=== PATIENT | female | born 1965 | race Caucasian/White ===

== ENCOUNTER → 2019-04-18 16:40 | Outpatient (BNVA) | payer BC, SELFPAY | PROVIDERS: Family Provider Nurse Practitioner; PCP Nurse Practitioner; Visit Provider Nurse Practitioner Family | DX: J34.89 Other specified disorders of nose and nasal sinuses (principal); E78.2 Mixed hyperlipidemia; L98.9 Disorder of the skin and subcutaneous tissue, unspecified | CPT/HCPCS: 80053; 80061; 85025 ==

== ENCOUNTER → 2019-06-10 08:15 | Outpatient (BNVA) | payer BC, SELFPAY | PROVIDERS: Family Provider Nurse Practitioner; PCP Nurse Practitioner; Visit Provider Nurse Practitioner | DX: F33.0 Major depressive disorder, recurrent, mild (principal); F10.20 Alcohol dependence, uncomplicated; Z63.4 Disappearance and death of family member | CPT/HCPCS: 99213 ==

== ENCOUNTER → 2019-08-13 09:58 | Outpatient (BNVA) | payer BC, SELFPAY | PROVIDERS: Family Provider Nurse Practitioner; PCP Nurse Practitioner; Visit Provider Nurse Practitioner | DX: I10 Essential (primary) hypertension (principal); E78.2 Mixed hyperlipidemia; Z68.26 Body mass index [BMI] 26.0-26.9, adult | CPT/HCPCS: 80053; 80061; 82607; 84443 ==

== ENCOUNTER → 2019-09-02 11:56 | Outpatient (BNVA) | payer BC, SELFPAY | PROVIDERS: Family Provider Nurse Practitioner; PCP Nurse Practitioner; Visit Provider Nurse Practitioner | DX: L91.8 Other hypertrophic disorders of the skin (principal) | CPT/HCPCS: 88305 ==

== ENCOUNTER 2019-09-30 08:16 | Outpatient (CLI) | payer BC, SELFPAY ==
--- NOTE | 2019-09-30 08:23 | MM_ITS ---
WS: [id number] BILATERAL DIGITAL SCREENING MAMMOGRAPHY WITH CAD CLINICAL INFORMATION: SCREENING HISTORY: Screening mammogram. No current complaints. COMPARISON: TECHNIQUE: Bilateral CC and MLO views. FINDINGS: Scattered fibroglandular densities bilaterally. No suspicious focal mass, asymmetry, calcifications, or architectural distortion. No evidence of malignancy. A few punctate calcifications. Stable right r etroareolar density. MM/[place] [id number] IMPRESSION: BI-RADS: 2-Benign FOLLOW UP: 1 Year Follow-up Recommend return to annual screening mammography.
== END 2019-09-30 08:17 | disposition home or self-care (01) ==
LOC: RADSHAW 08:21
PROVIDERS: PCP Nurse Practitioner; Visit Provider Nurse Practitioner
DX: Z12.31 Encounter for screening mammogram for malignant neoplasm of breast (principal)
CPT/HCPCS: 77067

== ENCOUNTER → 2019-12-20 08:28 | Outpatient (BNVA) | payer BC, SELFPAY | PROVIDERS: PCP Nurse Practitioner; Visit Provider Nurse Practitioner Family | DX: Z11.59 Encounter for screening for other viral diseases (principal) | CPT/HCPCS: 87635 ==

== ENCOUNTER → 2019-12-27 07:33 | Outpatient (BNVA) | payer BC, SELFPAY | PROVIDERS: PCP Nurse Practitioner; Visit Provider Nurse Practitioner | DX: F33.0 Major depressive disorder, recurrent, mild (principal); F10.20 Alcohol dependence, uncomplicated | CPT/HCPCS: 99213 ==

== ENCOUNTER → 2020-01-03 13:15 | Outpatient (BNVA) | payer BC, SELFPAY | PROVIDERS: PCP Nurse Practitioner; Visit Provider Nurse Practitioner Family | DX: Z11.59 Encounter for screening for other viral diseases (principal); J06.9 Acute upper respiratory infection, unspecified | CPT/HCPCS: 87635 ==

== ENCOUNTER → 2020-02-20 11:48 | Outpatient (BNVA) | payer BC, SELFPAY | PROVIDERS: PCP Nurse Practitioner; Visit Provider Nurse Practitioner Family | DX: M17.12 Unilateral primary osteoarthritis, left knee (principal); M25.562 Pain in left knee | CPT/HCPCS: 73562 ==

== ENCOUNTER → 2020-03-02 16:57 | Outpatient (BNVA) | payer BC, SELFPAY | PROVIDERS: PCP Nurse Practitioner; Visit Provider Nurse Practitioner | DX: I10 Essential (primary) hypertension (principal); E78.2 Mixed hyperlipidemia; L98.9 Disorder of the skin and subcutaneous tissue, unspecified | CPT/HCPCS: 80053; 80061; 81000; 88305 ==

== ENCOUNTER → 2020-06-12 09:20 | Outpatient (BNVA) | payer BC, SELFPAY | PROVIDERS: PCP Nurse Practitioner; Visit Provider Nurse Practitioner | DX: F33.0 Major depressive disorder, recurrent, mild (principal); F10.20 Alcohol dependence, uncomplicated | CPT/HCPCS: 99214 ==

== ENCOUNTER → 2020-06-24 15:54 | Outpatient (BNVA) | payer BC, SELFPAY | PROVIDERS: PCP Nurse Practitioner; Visit Provider Nurse Practitioner Family | DX: R10.31 Right lower quadrant pain (principal); M16.11 Unilateral primary osteoarthritis, right hip | CPT/HCPCS: 73502; 80053; 85025 ==

== ENCOUNTER 2020-10-28 10:16 | Outpatient (CLI) | payer BC, SELFPAY ==
--- NOTE | 2020-10-28 10:21 | MM_ITS ---
WS: [id number] BILATERAL DIGITAL SCREENING MAMMOGRAPHY WITH CAD CLINICAL INFORMATION: SCREENING HISTORY: Screening mammogram. No current complaints. COMPARISON: September 30, 2019 TECHNIQUE: Bilateral CC and MLO views. FINDINGS: Scattered fibroglandular densities bilaterally. No suspicious focal mass, asymmetry, calcifications, or architectural distortion. No evidence of malignancy. MM/[place] [id number] IMPRESSION: BI-RADS: 1-Negative FOLLOW UP: 1 Year Follow-up Recommend return to annual screening mammography.
== END 2020-10-28 10:17 | disposition home or self-care (01) ==
LOC: RADSHAW 10:20
PROVIDERS: PCP Nurse Practitioner; Visit Provider Nurse Practitioner
DX: Z12.31 Encounter for screening mammogram for malignant neoplasm of breast (principal)
CPT/HCPCS: 77067

== ENCOUNTER → 2021-07-08 16:24 | Outpatient (BNVA) | payer BC, SELFPAY | PROVIDERS: PCP Nurse Practitioner; Visit Provider Nurse Practitioner | DX: I10 Essential (primary) hypertension (principal); E78.2 Mixed hyperlipidemia; R00.0 Tachycardia, unspecified | CPT/HCPCS: 80053; 80061; 84443; 85025 ==

== ENCOUNTER 2021-09-24 07:54 | Emergency (ER) | payer BC, SELFPAY ==
[2021-09-24 08:19] VITALS: BP 150/89; PULSE 84; RESP 16; TEMP 36.8; O2SAT 93; BMI 26.9
[2021-09-24 08:24] VITALS: BP 115/80; O2SAT 94
--- NOTE | 2021-09-24 09:10 | XR_ITS ---
WS: [id number] Left elbow, 3 views, 09/24/2021 Clinical Data: injury with pain Comparison: None. Findings: There is an olecranon fracture with separation of the fracture fragments. Soft tissue swelling over t he posterior elbow is seen. There is minimal irregularity of the left radial head and the patient may have had an old fracture. The distal humerus is intact. XR/XR elbow LT min 3V* [id number] Impression: Fracture of the left olecranon with separation of the fracture fragments.
--- NOTE | 2021-09-24 09:28 | ED_ITS ---
HPI - Extremity Problem General: Chief complaint: Extremity Injury, Upper Stated complaint: injury to left arm, fall Time Seen by Provider: 09/24/21 08:19 History of Present Illness: 55-year-old female presents emergency department chief complaint of left elbow pain. The patient reports that she had fallen yesterday evening in which she has a history amount of swelling and discomfort noted to the left elbow with pain shooting down to her left arm. Patient reports no prior history of any trauma or injury noted to this previously she reports difficulty with bending the left elbow patient reports she sustained no other associated injuries. Associated symptoms: Deny chest pain, fever(s) or rash Review of Systems General: Reports: 10 or more systems reviewed and unremarkable except in HPI and below Const: Denies: fever(s), chills, fatigue or malaise Eyes: Denies: change in vision or blurry vision Card: Denies: chest pain or palpitations Resp: Denies: dyspnea or productive cough GI: Denies: abdominal pain, nausea or vomiting : Denies: flank pain Musc: Reports: joint pain, joint swelling, joint stiffness and limited range of motion Skin/Breast: Denies: rash or pruritus Neuro: Denies: headache(s) Psych: Denies: anxiety or depression Diogo/Lymph: Denies: easy bleeding All/Imm: Denies: urticaria, throat swelling or facial swelling [facility] ED PFSH: Medical History Alcohol dependence, uncomplicated Bereavement BMI 27.0-27.9,adult Essential (primary) hypertension Major depressive disorder, recurrent, mild Mixed hyperlipidemia Psychiatric care Surgical History History of endometrial ablation History of tubal ligation Family History Other Cancer Social History Smoking and tobacco status: current every day smoker cigarettes Packs smoked per day: 0.5 Second hand smoke exposure: Yes Smoking risk assessment/counseling performed?: Yes Alcohol intake: never Desire information about alcohol rehabilitation?: No Counseling given: No Desire information about substance/drug rehabilitation?: No Counseling given: No Adopted: No Caregiver/support person: No Lives independently: Yes Household members: spouse Housing: House Marital status: Number of children: 2 service: No Current occupational status: employed Current occupation: [employer] History of recent travel: No Current gender identity: Female Physical Exam Const: COMMON NORMALS: no acute distress, patient oriented x3 and healthy appearing HENMT: COMMON NORMALS: normocephalic and atraumatic HEAD & SCALP: normocephalic and atraumatic Eye: COMMON NORMALS: Equal, round and reactive pupils present and EOMs intact bilaterally PUPIL: Yes Equal, round and reactive pupils present Neck/C-Spine: COMMON NORMALS: full ROM, supple and no JVD Lymph: LYMPHATIC: no lymphadenopathy noted Chest: COMMONS NORMALS: normal inspection of the chest and normal palpation of entire chest wall Resp: COMMON NORMALS: normal respiratory effort, No retractions and clear to auscultation bilaterally EFFORT & INSPECTION: Yes able to speak in complete sentences and Yes symmetric chest movement AUSCULTATION: clear to auscultation bilaterally Cardio: COMMON NORMALS: no JVD, regular rate and regular rhythm RATE: regular rate RHYTHM: regular rhythm GI: COMMON NORMALS: Normal to inspection, nondistended, normoactive bowel sounds present, Soft to palpation and non-tender INSPECTION: Yes normal to inspection PALPATION: Yes Soft to palpation : COMMON NORMALS: Yes no CVA tenderness BLADDER/KIDNEY EXAM: Yes no CVA tenderness Back/Pelvis: COMMON NORMALS: no CVA tenderness Extremity: COMMON NORMALS: negative for normal to inspection and negative for full ROM NARRATIVE EXTREMITY EXAM: Moderate pain to palpation over the left elbow reduced range of motion of flexion extension due to pain mild crepitus appreciated in the joint neurovascularly intact distally underlying concerns underlying bony injury appreciated. Neuro: COMMON NORMALS: patient oriented x3, CN's II-XII intact bilaterally, moves all extremities and no focal motor deficits Psych: COMMON NORMALS: mental status grossly normal, Normal thought process present, cooperative and normal affect THOUGHT PROCESS: Normal thought process present Skin: COMMON NORMALS: no rashes or lesions noted GENERAL SKIN EXAM: no rashes or lesions noted Course Vital Signs: Vital signs: Vital Signs Temperature 98.2 F 09/24/21 08:19 Pulse Rate 84 09/24/21 08:19 Respiratory Rate 16 09/24/21 08:19 Blood Pressure 150/89 09/24/21 08:19 Pulse Oximetry 93 09/24/21 08:19 MDM - Extremity (Nontraumatic) Medical Decision Making Due to the patient's symptoms and condition lab work and imaging will be obtained we will continue to follow. Patient was found to have olecranon fracture I discussed the patient's case with on-call orthopedic physician and suggested further follow-up with her in the office this upcoming week to place the patient with a 60 degree OCL as well as appropriate pain management patient was advised to further follow-up as previously discussed in which advised to return the interim if any of her symptoms persist or worse. Lab Data Radiology Impressions Elbow X-Ray 09/24/21 09:10 Impression: Fracture of the left olecranon with separation of the fracture fragments. Discharge Plan Discharge Patient Disposition: Home Clinical Impression: Closed olecranon process fracture, Fall from standing Condition: Stable Prescriptions: New hydrocodone-acetaminophen 5-325 mg tablet 1 tab PO Q8H PRN (Reason: pain) Qty: 20 0RF No Action atorvastatin 40 mg tablet 40 mg PO DAILY@18 0RF Rx Instructions: dose increase Effexor XR 37.5 mg capsule,extended release 24hr 37.5 mg PO DAILY@15 0RF Rx Instructions: takes with 150mg to =187.5mg Avapro 300 mg tablet 300 mg PO DAILY@18 0RF venlafaxine 150 mg tablet extended release 24 hr 150 mg PO DAILY@15 0RF Rx Instructions: takes with 37.5mg to =187.5mg multivitamin Tablet 1 tab PO DAILY 0RF Discharge Orders: Discharge ED (Routine); Ordered 09/24/21 Ordered By: Alonso Leonardo Referrals: Anila Gallagher FNP-C [Primary Care Provider] - Glenna Sanchez MD [Physician] - 4-7 days Discharge Diet: Usual diet Discharge Activity: Limit activity as instructed Patient Instructions: Elbow Fracture (ED), Opioid Safety Activity Restrictions/Additional Instructions: Please follow-up with the provided orthopedic doctor in the next 3 to 5 days continue to use the splint until cleared by orthopedics take medications as prescribed please return the interim if any of your symptoms persist or worse. Coding Level of Care Code ED Inspector Repairer for Lilly Fwkassandra Exam Comprehensive
[2021-09-24 09:54] VITALS: BP 128/85; O2SAT 93
[2021-09-24] MEDS: HYDROcodone-acetaminophen 7.5-325 mg Tablet 1 TAB PO (09:59)
[2021-09-24 11:24] VITALS: BP 117/85; O2SAT 95
--- NOTE | 2021-09-24 11:42 | PC.NURSE ---
PHYSICIAN GAVE VERBAL ORDERS TO PLACE ELBOW SPLINT AT 60 DEGREE ANGLE. 3INCH ORTHOGLASS USED. PT TOLERATED WELL.
--- NOTE | 2021-09-27 09:11 | DCPLANNER ---
Addendum entered by Ewelina Urrutia 10/05/21 15:03: Patient had a follow up appointment scheduled for 09.27.[address] aSnchez at ortho - patient did attend appointment. Original Note: manager part had message to schedule a follow up appointment for patient with ortho. manager part sent patients information to the front office staff at ortho. Patients information will be printed and reviewed. Clinic will call patient with appointment information.
== END 2021-09-24 12:25 | disposition home or self-care (01) ==
PROVIDERS: Emergency Provider Emergency Medicine; PCP Nurse Practitioner
DX: S52.022A Displaced fracture of olecranon process without intraarticular extension of left ulna, initial encounter for closed fracture (principal); W19.XXXA Unspecified fall, initial encounter; I10 Essential (primary) hypertension; E78.2 Mixed hyperlipidemia; F17.210 Nicotine dependence, cigarettes, uncomplicated
CPT/HCPCS: 29105; 73080; 99283

== ENCOUNTER 2021-09-27 15:46 | Outpatient (CLI) | payer BC, SELFPAY | END 2021-09-27 15:47 | disposition home or self-care (01) | LOC: SPT 15:47 | PROVIDERS: PCP Nurse Practitioner; Visit Provider Specialist | DX: Z46.89 Encounter for fitting and adjustment of other specified devices (principal); S52.022D Displaced fracture of olecranon process without intraarticular extension of left ulna, subsequent encounter for closed fracture with routine healing; Z3A.00 Weeks of gestation of pregnancy not specified | CPT/HCPCS: 97760; L3761 ==

== ENCOUNTER 2021-09-28 13:26 | Day surgery (SDC) | payer BC, SELFPAY ==
[2021-09-27 17:05] VITALS: BMI 27.8
[2021-09-28] VITALS (10 sets, daily range): BP systolic 139–173; BP diastolic 96–114; PULSE 72–110; RESP 14–22; TEMP 36.2–36.6; O2SAT 91–98
--- NOTE | 2021-09-28 | SCC_ITS ---
Procedure done: Open reduction internal fixation left displaced olecranon fracture 81.1 seconds of fluoroscopic guidance, for a cumulative dose of 1.29 mGy, was provided to Dr. Sanchez by the radiology department. C-arm images of the LEFT elbow were saved for the patient's permanent record. [facility] CENTERDerek
[2021-09-28] MEDS: sodium chloride 0.9% 1,000 ML 30 ML IV (14:08)
[2021-09-28] MEDS: acetaminophen 1,000 MG/100 ML PIGGYBACK 400 MG IV (14:10)
[2021-09-28] MEDS: CELEcoxib 200 mg Capsule 400 MG PO (14:12)
[2021-09-28] MEDS: scopolamine 1.5 Patch 1 PATCH TRANSDERMA (14:26)
[2021-09-28 14:27] LABS: Basophils # 0.1 10^3/uL (0.0-0.1); Basophils % 0.5 %; Eosinophils # 0.1 10^3/uL (0.0-0.8); Eosinophils % 0.9 %; Hematocrit 43.8 % (37.0-47.0); Hemoglobin 14.2 g/dL (11.5-15.3); Lymphocytes # 2.9 10^3/uL (0.8-4.8); Mean Corpuscular HGB Conc 32.4 g/dL (30.0-36.0); Mean Corpuscular Hemoglobin 31.5 pg (28.0-34.0); Mean Corpuscular Volume 97.1 fl (81-99); Mean Platelet Volume 8.8 fL (7.4-10.4); Monocytes # 0.8 10^3/uL (0.2-0.9); Monocytes % 6.6 %; Neutrophils # 8.78 10^3/uL (1.8-7.7); Neutrophils % 68.5 %; Nucleated Red Blood Cells % 0 %; Platelet Count 416 10^3/cmm (130-400); Red Blood Count 4.51 10^6/uL (4.1-5.3); Red Cell Distribution Width 13.2 % (12.1-15.1); White Blood Count 12.8 10^3/uL (4.0-10.0)
--- NOTE | 2021-09-28 14:30 | P.HPUD_ITS ---
Surgery/Procedure H&P Update DATE OF PROCEDURE: September 28, 2021 DATE H&P PERFORMED: 09/27/21 H&P UPDATE INFORMATION: I have reviewed H&P completed within last 30 days, I have examined patient prior to procedure, No changes to prior documentation and H&P is in [facility] EMR on date indicated PREOP DIAGNOSIS: Closed olecranon fracture PLANNED PROCEDURE: Operation Date: 09/28/21 14:55 Proposed Procedures p OPEN REDUCTION INTERNAL FIXATION LEFT ELBOW FRACTURE 15526,S52.023A(Left) - Glenna Sanchez MD Related Problem List Diagnoses (1) Closed olecranon fracture: Qualifiers: Encounter type: initial encounter Laterality: left Qualified Code(s): S52.022A - Displaced fracture of olecranon process without intraarticular extension of left ulna, initial encounter for closed fracture
[2021-09-28] MEDS: ceFAZolin 2,000 MG in sodium chloride 0.9% (plus) 50 ML 100 MG IV (15:52)
--- NOTE | 2021-09-28 16:20 | ANES.PREANE2 ---
Pre-Anesthetic Assessment Height/Weight: Height 1.5 m Weight 62.596 kg Temp Pulse Resp BP Pulse Ox 97.9 F 110 H 17 151/102 93 09/28/21 13:37 09/28/21 13:37 09/28/21 13:37 09/28/21 13:37 09/28/21 13:37 Preop Diagnosis: Closed olecranon fracture Operation Date: 09/28/21 14:55 Proposed Procedures p OPEN REDUCTION INTERNAL FIXATION LEFT ELBOW FRACTURE 75251,S52.023A(Left) - Glenna Sanchez MD Familial anesthetic complications: none Was Beta Bandar taken within 24 hours: N/A Was Clonidine taken within 24 hours: N/A Last intake: Intake Last Liquid Date 09/27/21 Last Liquid Time 23:30 Last Solid Date 09/27/21 Last Solid Time 22:45 Social Alcohol and No tobacco Exam alert, oriented x 3, clear to auscultation bilaterally and regular rate & rhythm Airway Submandibular: within normal limits Cervical ROM: within normal limits Mallampati: Class II Dentition: full Pulmonary Chronic Obstructive Pulmonary Disease CV/HEM Arrythmia and Hypertension Metabolic Hyperlipidemia Neuropsych Anxiety and Depression Anesthetic Plan ASA status: 2 Anesthesia: General Medications/Allergies Home Medications Medication Instructions Recorded Confirmed Last Taken Type atorvastatin 40 mg tablet 40 mg PO DAILY@09/24/21 09/28/21 09/27/21 18:00 History hydrocodone 5 mg-acetaminophen 325 1 tab PO Q8H PRN #20 tab 09/24/21 09/28/21 09/27/21 10:00 Rx mg tablet irbesartan 300 mg tablet (Avapro) 300 mg PO DAILY@09/24/21 09/28/21 09/27/21 18:00 History multivitamin 1 tab PO DAILY 09/24/21 09/28/21 09/27/21 08:00 History venlafaxine 150 mg tablet,extended 150 mg PO DAILY@09/24/21 09/28/21 09/27/21 15:00 History release 24 hr venlafaxine 37.5 mg 37.5 mg PO DAILY@09/24/21 09/28/21 09/27/21 15:00 History capsule,extended release 24 hr (Effexor XR) HINGED ELBOW BRACE. #1 ea NS 09/27/21 09/27/21 Unknown Rx Allergies Allergy/AdvReac Type Severity Reaction Status Date / Time No Known Allergies Allergy Verified 09/28/21 13:39 Current Medications Generic Name Dose Route Start Last Admin Trade Name Yady PRN Reason Stop Dose Admin Sodium Chloride 1,000 mls @ 30 mls/hr 09/28/21 13:45 09/28/21 14:08 Sodium Chloride 0.9% IV 09/29/21 13:44 30 mls/hr .Q24H JAYDON Administration PFSH Anesthesia Medical History Alcohol dependence, uncomplicated Bereavement BMI 27.0-27.9,adult Essential (primary) hypertension Major depressive disorder, recurrent, mild Mixed hyperlipidemia Psychiatric care Surgical History History of endometrial ablation History of tubal ligation Family History Other Cancer Social History Smoking and tobacco status: current every day smoker cigarettes Packs smoked per day: 0.5 Second hand smoke exposure: Yes Smoking risk assessment/counseling performed?: Yes Alcohol intake: never Desire information about alcohol rehabilitation?: No Counseling given: No Desire information about substance/drug rehabilitation?: No Counseling given: No Adopted: No Caregiver/support person: No Lives independently: Yes Household members: spouse Housing: House Marital status: Number of children: 2 service: No Current occupational status: employed Current occupation: [employer] History of recent travel: No Current gender identity: Female Data Anesthesia : 09/28/21 14:15 Short CBC 09/28/21 Range/Units 14:15 WBC 12.8 H (4.0-10.0) 10^3/uL Hgb 14.2 (11.5-15.3) g/dL Hct 43.8 (37.0-47.0) % MCV 97.1 (81-99) fl Plt Count 416 H (130-400) 10^3/cmm Neut % (Auto) 68.5 % Neut # (Auto) 8.78 H (1.8-7.7) 10^3/uL Cardiac Studies: No Data to Display
[2021-09-28] MEDS: ceFAZolin 1,000 mg SDV 1000 MG IRRIGATION (16:39)
--- NOTE | 2021-09-28 17:39 | P.OP_ITS ---
Operative Report Date of procedure: September 28, 2021 Pre-op diagnosis: Closed left olecranon fracture Post-op diagnosis: Closed left olecranon fracture Post-op findings: Displaced olecranon fracture was very narrow, petite olecranon Procedure done: Open reduction internal fixation left displaced olecranon fracture Implants: [place] 3-hole left olecranon plate Pathology: none sent Surgeon: Glenna Sanchez Java Scala Developer: [facility] operating room technicians Anesthesia: General (Intubated, ASA 2) Estimated blood loss (mL): 25 Not utilized IV fluids (mL): 1,000 Urine output (mL): 0 (No [place]) Complications: None Findings: Displaced left olecranon fracture with very petite olecranon process and ulna Condition: stable Disposition: PACU (Then home with family) Brief History: This 55-year-old woman presented to my office with a displaced left olecranon fracture. Her date of injury was September 23, 2021. 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 She fell suffering the above injury. She was placed in a splint and referred to orthopedics for definitive treatment. The patient was seen in the office yesterday, and risks and complications were discussed with her. Consents were signed and questions were answered. She wished to proceed with open reduction internal fixation. Procedure: The patient was brought to the operating theater. Patient was placed on the operating room table in a supine position with accessible fluoroscopy to evaluate the elbow throughout the surgical procedure. The patient was also given Ancef 2 g preoperatively. The arm was then prepped and draped with DuraPrep in usual fashion with the arm draped free. A surgical pause was performed. At the time, the surgical pause, we confirmed the site and side of s urgery. We also confirmed the patient's identity, appropriate and timely administration of preoperative antibiotics and preoperative surgical markings. The patient's elbow fracture was evaluated. The olecranon plate was chosen. As the olecranon fragment was quite small, the chosen plate was the shortest plate available. This was a 3 hole left olecranon plate. After the plate was chosen, an incision was made over the subcutaneous border of the ulna and continuing into the area of the olecranon process. Dissection continued through skin and soft tissues using a combination of scalpel and scissors. The fracture was identified and was copiously irrigated. Reduction of the fracture was accomplished. It was very difficult to hold the fracture in an appropriately reduced position secondary to the very narrow ulna and olecranon. We were able to attach the plate proximally and distally with K wires. We then were able to place a screw from the olecranon process passing through the plate and into the ulna. With this, we were able to obtain compression across the fracture. Evaluation demonstrated that the fracture was nicely reduced and compression had been accomplished. The remainder of the screws were placed in the plate as possible. There was minimal room around the screw which was 60 mm going down the intramedullary canal. The plate was seated nicely. The elbow was placed through range of motion and imaging studies were obtained in AP and lateral planes. Following this, fascial tissues were closed with 0 Vicryl in an interrupted fashion. The subcutaneous tissues were closed with 3-0 Monocryl in an interrupted fashion. The skin was then closed with skin denise followed by Dermabond and Prineo. This was followed by an OpSite, sterile soft roll, a posterior splint, and an Roberth wrap. Tourniquet was not used throughout the surgical procedure. There were no complications. There were no specimens. The procedure was well tolerated. Plan is the patient will be discharged home. Related Problem List Diagnoses (1) Closed olecranon fracture:
--- NOTE | 2021-09-28 17:40 | XR_ITS ---
WS: [id number] XR elbow LT 2V [id number] REASON FOR EXAM: OR PICS FINDINGS: Plate and screw fixation of ulnar olecranon fracture. Fracture fragments and surgical appliances are in proper position and alignment. XR/XR elbow LT 2V [id number] IMPRESSION: Elbow fracture with fixation with no abnormality.
[2021-09-28] MEDS: fentaNYL 50 mcg/mL INJ 2mL IVP (18:03)
[2021-09-28] MEDS: labetalol 5 mg/mL SDV 20mL 10 MG IVP (18:05)
[2021-09-28] MEDS: labetalol 5 mg/mL SDV 20mL 100 MG (18:14)
--- NOTE | 2021-09-29 07:05 | ANE.PACU2 ---
Inpatient post-anesthesia follow up: Airway intact: Yes Vital signs: Temperature 97.3 F Pulse Rate 77 Respiratory Rate 17 Blood Pressure 139/96 Pulse Oximetry 95 Oxygen Delivery Me thod Room Air Oxygen Flow Rate Fraction of Inspir ed Oxygen Hydration adequate: Yes Nausea and vomiting: No Pain level: 2 Mental status: Baseline
== END 2021-09-28 19:25 | disposition home or self-care (01) ==
PROVIDERS: Anesthesiology; PCP Nurse Practitioner; Visit Provider Specialist
PROC: (CPT 24685; principal; 2021-09-28 14:35)
DX: S52.022A Displaced fracture of olecranon process without intraarticular extension of left ulna, initial encounter for closed fracture (principal); W01.0XXA Fall on same level from slipping, tripping and stumbling without subsequent striking against object, initial encounter; J44.9 Chronic obstructive pulmonary disease, unspecified; I10 Essential (primary) hypertension; F41.9 Anxiety disorder, unspecified; F32.9 Major depressive disorder, single episode, unspecified; E78.2 Mixed hyperlipidemia; F17.210 Nicotine dependence, cigarettes, uncomplicated
CPT/HCPCS: 24685; 73070; 76000; 85025; C1713; J0690; J1100; J2405; J2704; J2710; J3010; J3490; J7030

== ENCOUNTER → 2021-10-20 09:00 | Outpatient (BNVA) | payer BC, SELFPAY | PROVIDERS: PCP Nurse Practitioner; Visit Provider Specialist | DX: S52.023A Displaced fracture of olecranon process without intraarticular extension of unspecified ulna, initial encounter for closed fracture (principal); W19.XXXA Unspecified fall, initial encounter | CPT/HCPCS: 73080 ==

== ENCOUNTER → 2021-11-17 13:13 | Outpatient (BNVA) | payer BC, SELFPAY | PROVIDERS: PCP Nurse Practitioner; Visit Provider Specialist | DX: S52.022D Displaced fracture of olecranon process without intraarticular extension of left ulna, subsequent encounter for closed fracture with routine healing (principal); X58.XXXD Exposure to other specified factors, subsequent encounter | CPT/HCPCS: 73080 ==

== ENCOUNTER 2021-11-29 10:37 | Outpatient (CLI) | payer BC, SELFPAY ==
--- NOTE | 2021-11-29 11:04 | MM_ITS ---
WS: [id number] BILATERAL SCREENING DIGITAL TOMOSYNTHESIS MAMMOGRAM WITH CAD HISTORY: SCREENING COMPARISON: 10/28/2020, 09/30/2019 and 05/02/2016 Bilateral CC and MLO views with tomosynthesis and synthetic mammography submitted. Computer aided det ection analyzed. Breast composition: There are scattered areas of fibroglandular density. No suspicious masses, microc alcifications or architectural distortion. The asymmetry posterior to the RIGHT nipple is stable over multiple prior years. MM/[place] [id number] IMPRESSION: BI-RADS: 2-Benign FOLLOW UP: 1 Year Follow-up
== END 2021-11-29 10:38 | disposition home or self-care (01) ==
PROVIDERS: PCP Nurse Practitioner; Visit Provider Nurse Practitioner
DX: Z12.31 Encounter for screening mammogram for malignant neoplasm of breast (principal)
CPT/HCPCS: 77063; 77067

== ENCOUNTER → 2021-12-09 15:40 | Outpatient (BNVA) | payer BC, SELFPAY | PROVIDERS: PCP Nurse Practitioner; Visit Provider Nurse Practitioner | DX: I10 Essential (primary) hypertension (principal) | CPT/HCPCS: 80053; 80061 ==

== ENCOUNTER → 2021-12-30 17:17 | Outpatient (BNVA) | payer BC, SELFPAY | PROVIDERS: PCP Nurse Practitioner; Visit Provider Nurse Practitioner | DX: L98.9 Disorder of the skin and subcutaneous tissue, unspecified (principal) | CPT/HCPCS: 88304 ==

== ENCOUNTER → 2022-06-07 15:30 | Outpatient (BNVA) | payer BC, SELFPAY | PROVIDERS: PCP Nurse Practitioner; Visit Provider Nurse Practitioner | DX: I10 Essential (primary) hypertension (principal); F33.0 Major depressive disorder, recurrent, mild; E78.2 Mixed hyperlipidemia; T30.0 Burn of unspecified body region, unspecified degree; X58.XXXA Exposure to other specified factors, initial encounter | CPT/HCPCS: 80053; 80061; 83721; 84443; 85025 ==

== ENCOUNTER 2022-12-02 07:37 | Outpatient (CLI) | payer BC, SELFPAY ==
--- NOTE | 2022-12-02 07:45 | MM_ITS ---
WS: [id number] BILATERAL SCREENING DIGITAL TOMOSYNTHESIS MAMMOGRAM WITH CAD HISTORY: SCREENING COMPARISON: 11/29/2021 and 10/28/2020 Bilateral CC and MLO views with tomosynthesis and synthetic mammography submitted. Computer aided det ection analyzed. Breast composition: There are scattered areas of fibroglandular density. No suspicious masses, microc alcifications or architectural distortion. IMPRESSION: MM/[place] [id number] BI-RADS: 1-Negative FOLLOW UP: 1 Year Follow-up
== END 2022-12-02 07:38 | disposition home or self-care (01) ==
PROVIDERS: PCP Nurse Practitioner; Visit Provider Nurse Practitioner
DX: Z12.31 Encounter for screening mammogram for malignant neoplasm of breast (principal)
CPT/HCPCS: 77063; 77067

== ENCOUNTER → 2022-12-28 15:06 | Outpatient (BNVA) | payer BC, SELFPAY | PROVIDERS: PCP Nurse Practitioner; Visit Provider Nurse Practitioner | DX: E78.2 Mixed hyperlipidemia (principal); R00.0 Tachycardia, unspecified; I10 Essential (primary) hypertension | CPT/HCPCS: 80053; 80061; 84443; 85025 ==

== ENCOUNTER → 2023-01-25 15:17 | Outpatient (BNVA) | payer BC, SELFPAY | PROVIDERS: PCP Nurse Practitioner; Visit Provider Nurse Practitioner | DX: M17.12 Unilateral primary osteoarthritis, left knee (principal) | CPT/HCPCS: 73562 ==

== ENCOUNTER → 2023-03-22 13:07 | Outpatient (BNVA) | payer BC, SELFPAY | PROVIDERS: PCP Nurse Practitioner; Visit Provider Specialist | DX: M17.12 Unilateral primary osteoarthritis, left knee | CPT/HCPCS: 73560; 73565 ==

== ENCOUNTER 2023-04-25 14:17 | Outpatient (CLI) | payer BC, SELFPAY ==
--- NOTE | 2023-04-25 14:30 | MR_ITS ---
WS: [id number] MRI LEFT KNEE NONCONTRAST TECHNIQUE: Axial PD, coronal PD fat sat, coronal PD, sagittal PD, and sagittal PD fat-sat images obta ined. CLINICAL INFORMATION: left knee pain COMPARISON: None. FINDINGS: Distal quadriceps and patella tendons are intact. Chronic thinning of the ACL with mucoid degeneratio n. Intact ACL fibers are visualized. Findings likely due to prior chronic ACL partial tear. PCL appea rs intact. 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 Subchondral edema worse in the medi al joint compartment. Hypertrophic changes along the joint line. Grade III chondromalacia patella. Me dial and lateral patellar retinaculum intact. Medial and lateral collateral ligaments are intact. Pop liteus appears intact. Tiny popliteal cyst. Normal lateral meniscus. Complex tear involving the media l meniscus with blunting of the meniscal root. Complex tear extends to the peripheral reticular surfa ce. Blunting of the anterior and posterior horns with peripheral extrusion. Subchondral edema in the medial tibial plateau. IMPRESSION: 1. 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 2. Complex suspected bucket handle tear of the medial meniscus extending to the meniscal root and pe ripheral articular surface. Blunting of the anterior and posterior horns with peripheral extrusion of the medial meniscus. Ltgi-uf-aoda articulation in the medial joint compartment with subchondral naresh a. 3. Tiny ACL appears intact with mucoid degeneration. Findings likely due to prior chronic partial te ar. PCL appears normal. 4. Moderate grade III chondromalacia patella. Outbridge grading: grade IV: full-thickness cartilage loss with underlying bone reactive changes
== END 2023-04-25 14:18 | disposition home or self-care (01) ==
PROVIDERS: PCP Nurse Practitioner; Visit Provider Specialist
DX: M17.12 Unilateral primary osteoarthritis, left knee (principal); M22.42 Chondromalacia patellae, left knee; R93.6 Abnormal findings on diagnostic imaging of limbs
CPT/HCPCS: 73721

== ENCOUNTER 2023-12-25 08:26 | Outpatient (CLI) | payer BC, SELFPAY ==
--- NOTE | 2023-12-25 08:27 | MM_ITS ---
WS: [id number] BILATERAL SCREENING DIGITAL TOMOSYNTHESIS MAMMOGRAM WITH CAD HISTORY: SCREENING COMPARISON: 12/02/2022, 11/29/2021 Bilateral CC and MLO views with tomosynthesis and synthetic mammography submitted. Computer aided det ection analyzed. Breast composition: There are scattered areas of fibroglandular density. No suspicious masses, microc alcifications or architectural distortion. MM/MM scr BI tomosynthesis [id number] IMPRESSION: BI-RADS: 1 - Negative. FOLLOW UP: 1 Year Follow-up
== END 2023-12-25 08:27 | disposition home or self-care (01) ==
PROVIDERS: PCP Nurse Practitioner; Visit Provider Nurse Practitioner
DX: Z12.31 Encounter for screening mammogram for malignant neoplasm of breast (principal); R92.323 Mammographic fibroglandular density, bilateral breasts
CPT/HCPCS: 77063; 77067

== ENCOUNTER → 2024-01-22 11:57 | Outpatient (BNVA) | payer BC, SELFPAY | PROVIDERS: PCP Nurse Practitioner; Visit Provider Nurse Practitioner | DX: Z12.4 Encounter for screening for malignant neoplasm of cervix (principal); I10 Essential (primary) hypertension; E78.2 Mixed hyperlipidemia | CPT/HCPCS: 80053; 80061; 84443; 88175 ==

== ENCOUNTER → 2024-05-06 16:12 | Outpatient (BNVA) | payer BC, SELFPAY | PROVIDERS: PCP Nurse Practitioner; Visit Provider Nurse Practitioner | DX: R39.9 Unspecified symptoms and signs involving the genitourinary system (principal) | CPT/HCPCS: 81000; 87077; 87086; 87184 ==

== ENCOUNTER 2024-07-11 14:32 | Emergency (ER) | payer OTHER, BC, SELFPAY ==
[2024-07-11 14:53] VITALS: BP 136/87; PULSE 81; RESP 18; TEMP 36.5; O2SAT 96
--- NOTE | 2024-07-11 16:10 | XRR_ITS ---
PROCEDURE INFORMATION: Exam: XR Left Knee Exam date and time: 07/11/2024 4:20 PM Age: 58 years old Clinical indication: Injury or trauma; Fall; Blunt trauma; Knee; Bilateral TECHNIQUE: Imaging protocol: Radiologic exam of the left knee. Views: 3 views. COMPARISON: MR knee LT wo con* [id number] 04/25/2023 2:58 PM FINDINGS: Bones/joints: Normal. No acute displaced fracture or dislocation. Soft tissues: Normal. XR/XR knee LT 3V* [id number] IMPRESSION: No acute findings.
--- NOTE | 2024-07-11 16:10 | XRR_ITS ---
PROCEDURE INFORMATION: Exam: XR Right Knee Exam date and time: 07/11/2024 4:18 PM Age: 58 years old Clinical indication: Injury or trauma; Fall; Blunt trauma; Knee; Bilateral TECHNIQUE: Imaging protocol: Radiologic exam of the right knee. Views: 3 views. COMPARISON: No relevant prior studies available. FINDINGS: Bones/joints: Normal. No acute displaced fracture or dislocation. Soft tissues: Normal. XR/XR knee RT 3V* [id number] IMPRESSION: No acute findings.
--- NOTE | 2024-07-11 16:13 | ED_ITS ---
HPI - Extremity Problem General: Chief complaint: Extremity Injury, Lower Stated complaint: fall-both knees hurting Time Seen by Provider: 07/11/24 15:58 Source: patient Mode of arrival: ambulatory Limitations: no limitations History of Present Illness: 58yo female presents with bilateral knee pain following a fall that occurred at approximately 1245 while at work. 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 States she tripped over a ladder that was on the ground. She reports that she landed on both knees. States the school nurse applied ice and gave her 2 ibuprofen, but did recommend she come to the emergency department for x-rays. Patient reports that she has previously fallen and hurt her left knee, but has not had any significant injury to it. Patient denies any other injury or concern at this time. Associated symptoms: Deny chest pain or fever(s) Related Data Home Medications ?Medication ?Instructions ?Recorded ?Confirmed atorvastatin 20 mg tablet 20 mg PO QPM 07/11/24 clobetasol 0.05 % topical cream 1 applic topical BID P RN rough 07/11/24 07/11/24 scaling hands fenofibrate nanocrystallized 145 145 mg PO QPM 5 07/11/24 mg tablet (Tricor) irbesartan 300 mg tablet (Avapro) 300 mg PO QPM 07/11/24 Previous Rx's ?Medication ?Instructions ?Recorded metoprolol succinate 50 mg 50 mg PO .at bedtime #90 ta bs 01/22/24 tablet,extended release 24 hr (Toprol XL) venlafaxine 150 mg tablet,extended 150 mg PO DAILY@15 #90 tabs 01/22/24 release 24 hr venlafaxine 37.5 mg 37.5 mg PO DAILY@15 #90 caps 01/22/24 capsule,extended release 24 hr (Effexor XR) Allergies Allergy/AdvReac Type Severity Reaction Status Date / Time No Known Allergies Allergy Verified 05/06/24 16:08 Review of Systems Const: Denies: fever(s) or chills Card: Denies: chest pain Resp: Denies: dyspnea GI: Denies: abdominal pain Musc: Reports: joint pain (bilateral knees) [facility] ED PFSH: Medical History BMI 27.0-27.9,adult Bereavement Alcohol dependence, uncomplicated Major depressive disorder, recurrent, mild Essential (primary) hypertension Mixed hyperlipidemia Surgical History History of tubal ligation History of endometrial ablation Family History Other Cancer Social History Smoking and tobacco/nicotine status: current every day tobacco/nicotine user Second hand smoke exposure: Yes Alcohol intake: never Substance/Drug Use: never Adopted: No Caregiver/support person: No Lives independently: Yes Household members: spouse Housing: House Marital status: Number of children: 2 service: No Current occupational status: employed Current occupation: [employer] school Do you think of yourself as: Straight/Heterosexual Current gender identity: Female Physical Exam Const: COMMON NORMALS: no acute distress, average body habitus and patient oriented x3 GENERAL APPEARANCE: cooperative ORIENTATION/CONSCIOUSNESS: Yes awake OTHER: Patient is ambulatory to the exam room unassisted. She is sitting upright on the stretcher no acute distress. She is able to give history with no difficulty. She is interactive with exam appropriately. No family is at bedside at time of exam HENMT: COMMON NORMALS: normocephalic HEAD & SCALP: normocephalic Neck/C-Spine: COMMON NORMALS: full ROM Chest: CHEST: Yes Symmetrical chest wall rise Resp: COMMON NORMALS: normal respiratory effort EFFORT & INSPECTION: Yes able to speak in complete sentences Back/Pelvis: COMMON NORMALS: thoraco-lumbar ROM normal Extremity: RIGHT LOWER EXTREMITY: Yes knee joint (mild ttp, FROM) LEFT LOWER EXTREMITY: Yes knee joint (swelling L>R. mild ttp, FROM) Neuro: COMMON NORMALS: patient oriented x3 Psych: COMMON NORMALS: cooperative Course Vital Signs: Vital signs: Vital Signs Temperature 97.7 F 07/11/24 14:53 Pulse Rate 81 07/11/24 14:53 Respiratory Rate 18 07/11/24 14:53 Blood Pressure 136/87 07/11/24 14:53 Pulse Oximetry 96 07/11/24 14:53 Oxygen Delivery Me thod Room Air 07/11/24 14:53 MDM - Extremity (Nontraumatic) Medical Decision Making 58yo female presents with bilateral knee pain following a fall that occurred at approximately 1245 while at work. 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 States she tripped over a ladder that was on the ground. She reports that she landed on both knees. States the school nurse applied ice and gave her 2 ibuprofen, but did recommend she come to the emergency department for x-rays. Patient reports that she has previously fallen and hurt her left knee, but has not had any significant injury to it. Patient denies any other injury or concern at this time. Patient is nontoxic in appearance. Vital signs are stable. Patient is able to bear weight and has full range of motion of the knees, low suspicion of fracture. Will proceed with x-ray imaging as patient was sent by school nurse specifically for imaging. No acute abnormalities noted on the x-ray of the right and left knees. Discussed findings with patient. Advised that she would likely be very sore for the next several days. Recommend patient follow-up with primary care, call Monday with an update of symptoms and to discuss to recheck. Return precautions provided. Patient states understanding and has no further questions or concerns at this time. Lab Data Radiology Impressions Knee X-Ray 07/11/24 16:10 IMPRESSION: No acute findings. All radiology interpretation(s) finalized by discharge Discharge Plan Discharge Patient Disposition: Home Clinical Impression: Fall from slip, trip, or stumble Qualifiers: Encounter type: initial encounter Qualified Code(s): W01.0XXA - Fall on same level from slipping, tripping and stumbling without subsequent striking against object, initial encounter Knee pain, bilateral Qualifiers: Chronicity: acute Qualified Code(s): M25.561 - Pain in right knee Condition: Stable Prescriptions: No Action metoprolol succinate [Toprol XL] 50 mg tablet extended release 24 hr 50 mg PO .at bedtime Qty: 90 1RF venlafaxine [Effexor XR] 37.5 mg capsule,extended release 24hr 37.5 mg PO DAILY@15 Qty: 90 1RF Rx Instructions: takes with 150mg to =187.5mg venlafaxine 150 mg tablet extended release 24hr 150 mg PO DAILY@15 Qty: 90 1RF Rx Instructions: takes with 37.5mg to =187.5mg clobetasol 0.05 % cream 1 applic TOPICAL BID PRN (Reason: rough scaling hands) atorvastatin 20 mg tablet 20 mg PO QPM irbesartan [Avapro] 300 mg tablet 300 mg PO QPM fenofibrate nanocrystallized [Tricor] 145 mg tablet 145 mg PO QPM Discharge Orders: Discharge ED (Routine); Ordered 07/11/24 Ordered By: Paolo Aguilera Referrals: Anila Gallagher FNP-C [Primary Care Provider, Family Practice] Discharge Diet: Usual diet Discharge Activity: Increase activity as tolerated Patient Instructions: Knee Pain (ED) Activity Restrictions/Additional Instructions: No acute abnormalities were noted on the x-rays today You will likely be very sore for the next several days Increase your activity as tolerated Follow-up with primary care, call Monday with an update of symptoms and to discuss to recheck Return to the emergency department if any further injury, rapid worsening symptoms, and as needed Print Language: Northern Irish Coding Level of Care Code ED Developmental Mathematics Professor for Lilly [facility]
--- NOTE | 2024-07-11 16:45 | PC.PHAR ---
Pt has 3 other creams/ointments that were prescribed last month. Pt states she is no longer using them-just the steroid cream Clobetasol 0.05%. Not added to med list are the following: Pimecrolimus 1% bid prn Ciclopirox 8% bid prn Mupirocin 2% bid prn
== END 2024-07-11 17:58 | disposition home or self-care (01) ==
PROVIDERS: Emergency Provider Nurse Practitioner; PCP Nurse Practitioner
DX: M25.561 Pain in right knee (principal); M25.562 Pain in left knee; W01.0XXA Fall on same level from slipping, tripping and stumbling without subsequent striking against object, initial encounter; Z72.0 Tobacco use; I10 Essential (primary) hypertension; E78.2 Mixed hyperlipidemia
CPT/HCPCS: 73562; 99283

== ENCOUNTER 2024-10-08 14:36 | Emergency (ER) | payer BC, SELFPAY ==
[2024-10-08 14:38] VITALS: BP 123/83; PULSE 80; TEMP 36.7; O2SAT 97; BMI 27.8
--- NOTE | 2024-10-08 14:38 | XRR_ITS ---
PROCEDURE INFORMATION: Exam: XR Right Hip Exam date and time: 10/08/2024 2:52 PM Age: 58 years old Clinical indication: Injury or trauma; Fall; Blunt trauma (contusions or hematomas); Right; Hip TECHNIQUE: Imaging protocol: Radiologic exam of the right hip. Views: 1 view hip with pelvis when performed. COMPARISON: CR XR hip RT 2-3V wo/w pel* [id number] 06/24/2020 3:55 PM FINDINGS: Bones/joints: Severe degenerative osteoarthritis with interval increase in superior joint space narrowing compared with the prior study. Mild degenerative change right sacroiliac joint. No acute fracture or dislocation. Soft tissues: No significant soft tissue pathology. XR/XR hip RT 2-3V wo/w pel* [id number] IMPRESSION: No acute pathology. Severe degenerative change of the right hip.
--- NOTE | 2024-10-08 14:56 | W.ED.EXTPRO ---
HPI - Extremity Problem General: Chief complaint: Extremity Injury, Lower Stated complaint: R side hip and leg pain post fall last week Time Seen by Provider: 10/08/24 14:55 History of Present Illness: 58-year-old female complains of right hip pain since she fell in the shower last week she has been able to ambulate. She denies striking her head no other injuries no nausea or vomiting no loss consciousness Associated symptoms: Deny chest pain, fever(s) or rash Related Data Home Medications ?Medication ?Instructions ?Recorded ?Confirmed atorvastatin 20 mg tablet 20 mg PO QPM 07/11/24 07/11/24 clobetasol 0.05 % topical cream 1 applic topical BID PRN rough 07/11/24 07/11/24 scaling hands fenofibrate nanocrystallized 145 145 mg PO QPM 07/11/24 07/11/24 mg tablet (Tricor) irbesartan 300 mg tablet (Avapro) 300 mg PO QPM 07/11/24 07/11/24 Previous Rx's ?Medication ?Instructions ?Recorded venlafaxine 150 mg tablet,extended 150 mg PO DAILY@15 #90 tabs 01/22/24 release 24 hr venlafaxine 37.5 mg 37.5 mg PO DAILY@15 #90 caps 01/22/24 capsule,extended release 24 hr (Effexor XR) metoprolol succinate 50 mg 50 mg PO .at bedtime #30 tabs 09/30/24 tablet,extended release 24 hr (Toprol XL) prednisone 20 mg tablet 20 mg PO TID #15 tabs 10/08/24 tizanidine 4 mg tablet 4 mg PO Q6H PRN muscle spasticity 10/08/24 #20 tabs Allergies Allergy/AdvReac Type Severity Reaction Status Date / Time No Known Allergies Allergy Verified 10/08/24 14:52 Review of Systems Const: Denies: fever(s) or chills Card: Denies: chest pain Resp: Denies: dyspnea GI: Denies: abdominal pain : Denies: dysuria, urinary frequency or urinary urgency Musc: Denies: neck pain or back pain Skin/Breast: Denies: rash PFSH ED PFSH: Medical History BMI 27.0-27.9,adult Bereavement Alcohol dependence, uncomplicated Major depressive disorder, recurrent, mild Essential (primary) hypertension Mixed hyperlipidemia Surgical History History of tubal ligation History of endometrial ablation Family History Other Cancer Social History Smoking and tobacco/nicotine status: current every day tobacco/nicotine user Second hand smoke exposure: Yes Alcohol intake: never Substance/Drug Use: never Adopted: No Caregiver/support person: No Lives independently: Yes Household members: spouse Housing: House Marital status: Number of children: 2 service: No Current occupational status: employed Current occupation: [employer] Do you think of yourself as: Straight/Heterosexual Current gender identity: Female Physical Exam Const: COMMON NORMALS: no acute distress GENERAL APPEARANCE: cooperative and comfortable ORIENTATION/CONSCIOUSNESS: Yes awake, Yes oriented to person, Yes oriented to place and Yes oriented to time HENMT: COMMON NORMALS: normocephalic, atraumatic and hearing grossly normal bilaterally HEAD & SCALP: normocephalic and atraumatic Resp: COMMON NORMALS: normal respiratory effort, No retractions, No use of accessory muscles and clear to auscultation bilaterally AUSCULTATION: clear to auscultation bilaterally Cardio: COMMON NORMALS: regular rate, regular rhythm and No murmurs present (Cardio) RATE: regular rate RHYTHM: regular rhythm GI: COMMON NORMALS: Soft to palpation and No hepatosplenomegaly present AUSCULTATION: Yes normoactive bowel sounds PALPATION: Yes Soft to palpation, No Tenderness to palpation present (GI), No Guarding due to palpation present (GI) and Yes No hepatosplenomegaly present Extremity: COMMON NORMALS: normal to inspection, capillary refill normal, no clubbing, cyanosis or edema, no calf tenderness and no pedal edema Neuro: SENSORIUM/ORIENTATION: Yes oriented to person, Yes oriented to place and Yes oriented to time Skin: COMMON NORMALS: no rashes or lesions noted GENERAL SKIN EXAM: no rashes or lesions noted Course Vital Signs: Vital signs: Vital Signs Temperature 98.0 F 10/08/24 14:38 Pulse Rate 86 10/08/24 15:24 Respiratory Rate 16 10/08/24 15:24 Blood Pressure 120/83 10/08/24 15:24 Pulse Oximetry 93 10/08/24 15:24 Oxygen Delivery Me thod Room Air 10/08/24 14:38 MDM - Extremity (Nontraumatic) Medical Decision Making Patient has pain with some radicular leg symptoms with pain radiating through the buttock into the outer portion of her leg. She is still functional with no red flag symptoms. X-ray of the hip does not show any acute fracture. Discharge patient home and follow-up with primary care she has no direct back pain at this time. Medical Records I reviewed the patient's medical records. Lab Data Radiology Impressions Hip/Pelvis X-Ray 10/08/24 14:38 IMPRESSION: No acute pathology. Severe degenerative change of the right hip. All radiology interpretation(s) finalized by discharge Discharge Plan Discharge Patient Disposition: Home Clinical Impression: Acute pain of right hip, Radiculopathy Condition: Stable Prescriptions: New tizanidine 4 mg tablet 4 mg PO Q6H PRN (Reason: muscle spasticity) Qty: 20 0RF Rx Instructions: do not exceed 3 doses per 24 hrs prednisone 20 mg tablet 20 mg PO TID Qty: 15 0RF Rx Instructions: 1 p.o. 3 times daily x3 days, 1 p.o. twice daily x2 days, 1 p.o. daily x2 days No Action venlafaxine [Effexor XR] 37.5 mg capsule,extended release 24hr 37.5 mg PO DAILY@15 Qty: 90 1RF Rx Instructions: takes with 150mg to =187.5mg venlafaxine 150 mg tablet extended release 24hr 150 mg PO DAILY@15 Qty: 90 1RF Rx Instructions: takes with 37.5mg to =187.5mg metoprolol succinate [Toprol XL] 50 mg tablet extended release 24 hr 50 mg PO .at bedtime Qty: 30 0RF clobetasol 0.05 % cream 1 applic TOPICAL BID PRN (Reason: rough scaling hands) atorvastatin 20 mg tablet 20 mg PO QPM irbesartan [Avapro] 300 mg tablet 300 mg PO QPM fenofibrate nanocrystallized [Tricor] 145 mg tablet 145 mg PO QPM Discharge Orders: Discharge ED (Routine); Ordered 10/08/24 Ordered By: Jake Abarca Referrals: Anila Gallagher, [employer] OPERATOR-C [Primary Care Provider, Family Practice] Discharge Diet: Usual diet Discharge Activity: Increase activity as tolerated Patient Instructions: Opioid Safety, Pain Management, Patient Portal & Jonelle Instructions Activity Restrictions/Additional Instructions: [facility] you [facility] your healthcare needs today. It is very important that you follow up as instructed or that you return to the Emergency Department should you have concerns or if your condition changes or worsens in any way. You were seen in the emergency room 1 week after a fall. X-ray hip does not show any acute fractures. You are given a steroid taper to start today. Follow-up with your primary care doctor if symptoms or not improving they may need to do further advanced imaging as an outpatient Print Language: Tamazight Coding Level of Care Code ED Assembler Installer General for [facility]
[2024-10-08 15:24] VITALS: BP 120/83; PULSE 86; RESP 16; O2SAT 93
== END 2024-10-08 15:30 | disposition home or self-care (01) ==
PROVIDERS: Emergency Provider Family Medicine; PCP Nurse Practitioner
DX: M25.551 Pain in right hip (principal); M54.10 Radiculopathy, site unspecified; Z72.0 Tobacco use; I10 Essential (primary) hypertension; E78.2 Mixed hyperlipidemia
CPT/HCPCS: 73502; 99283

== ENCOUNTER → 2024-10-30 16:03 | Outpatient (BNVA) | payer BC, SELFPAY | PROVIDERS: PCP Nurse Practitioner; Visit Provider Nurse Practitioner | DX: E78.2 Mixed hyperlipidemia (principal); I10 Essential (primary) hypertension | CPT/HCPCS: 80053; 80061 ==

== ENCOUNTER 2024-10-31 16:11 | Outpatient (CLI) | payer BC, SELFPAY ==
--- NOTE | 2024-10-31 16:21 | XRR_ITS ---
PROCEDURE INFORMATION: Exam: XR Lumbosacral Spine Exam date and time: 10/31/2024 4:45 PM Age: 59 years old Clinical indication: Injury or trauma; Fall; Blunt trauma (contusions or hematomas) and swelling (edema); Additional info: E78.2 - mixed hyperlipidemia TECHNIQUE: Imaging protocol: Radiologic exam of the lumbosacral spine. Views: 2 or 3 views. COMPARISON: CR XR hip RT 2-3V wo/w pel* [id number] 10/08/2024 2:52 PM FINDINGS: Bones/joints: Mild degenerative disc disease reflected as a decrease in disc space height and anterior endplate osteophytosis. No spondylolisthesis. No pars defect. No fracture. Partial lumbarization of the 1st sacral segment. Soft tissues: Unremarkable. XR/XR lumbar spine 2-3V* [id number] IMPRESSION: Mild diffuse degenerative disc disease. No fracture.
== END 2024-10-31 16:12 | disposition home or self-care (01) ==
PROVIDERS: PCP Nurse Practitioner; Visit Provider Nurse Practitioner
DX: M51.379 Other intervertebral disc degeneration, lumbosacral region without mention of lumbar back pain or lower extremity pain (principal); E78.2 Mixed hyperlipidemia; I10 Essential (primary) hypertension; W19.XXXA Unspecified fall, initial encounter
CPT/HCPCS: 72100

== ENCOUNTER 2024-11-15 12:04 | Outpatient (CLI) | payer BC, SELFPAY ==
--- NOTE | 2024-11-15 12:15 | MR_ITS ---
WS: [id number] MRI LUMBAR SPINE NONCONTRAST TECHNIQUE: Sagittal T1, T2 and STIR imaging. Axial T1 and T2 imaging. CLINICAL INFORMATION: M54.50 - Low back pain, unspecified COMPARISON: None. FINDINGS: Mild lumbar curve. No acute compression. No high-grade central canal stenosis. S1 is partially lumbarized. L1-L2: Mild facet arthropathy. Spinal canal and foramen are patent. L2-L3: Mild annular bulging. Moderate facet arthropathy. Spinal canal and foramen are patent. L3-L4: Mild annular bulging. Mild facet arthropathy. Mild RIGHT foraminal narrowing. L4-L5: Mild annular bulging. Moderate to advanced facet arthropathy. LEFT foraminal protrusion with mild LEFT foraminal narrowing. RIGHT foramen is patent. L5-S1: Broad-based disc bulging with moderate central canal stenosis. Impingement of traversing S1 nerve roots bilaterally. Moderate facet arthropathy. Mild RIGHT greater than LEFT foraminal narrowing. Visualized pelvic bony structures: Normal. Paravertebral soft tissues: Normal. 10 mm RIGHT renal cyst. MR/MR lumbar spine wo con* [id number] IMPRESSION: 1. Counting performed from the craniocervical junction. S1 is partially lumbar ized. Recommend plain film correlation prior to surgical intervention. 2. Disc bulge L5-S1 with moderate central canal stenosis and impingement of th e traversing LEFT greater than RIGHT S1 nerve roots. Mild bilateral foraminal n arrowing at this level. 3. LEFT foraminal protrusion L4-5 with impingement on the exiting L4 nerve giorgio t. 4. Moderate facet arthropathy L4-L5 and L5-S1.
== END 2024-11-15 12:05 | disposition home or self-care (01) ==
LOC: RAD 12:05
PROVIDERS: PCP Nurse Practitioner; Visit Provider Nurse Practitioner
DX: M48.07 Spinal stenosis, lumbosacral region (principal); M79.604 Pain in right leg; R93.7 Abnormal findings on diagnostic imaging of other parts of musculoskeletal system; M51.379 Other intervertebral disc degeneration, lumbosacral region without mention of lumbar back pain or lower extremity pain; M51.26 Other intervertebral disc displacement, lumbar region; M47.896 Other spondylosis, lumbar region; M47.897 Other spondylosis, lumbosacral region; M43.8X6 Other specified deforming dorsopathies, lumbar region; M51.369 Other intervertebral disc degeneration, lumbar region without mention of lumbar back pain or lower extremity pain; M48.061 Spinal stenosis, lumbar region without neurogenic claudication; N28.1 Cyst of kidney, acquired
CPT/HCPCS: 72148

== ENCOUNTER → 2024-11-26 08:46 | Outpatient (BNVA) | payer BC, SELFPAY | PROVIDERS: PCP Nurse Practitioner; Visit Provider Orthopaedic Surgery | DX: M48.061 Spinal stenosis, lumbar region without neurogenic claudication (principal); M16.11 Unilateral primary osteoarthritis, right hip; Z09 Encounter for follow-up examination after completed treatment for conditions other than malignant neoplasm | CPT/HCPCS: 72110 ==

== ENCOUNTER → 2024-11-27 10:18 | Outpatient (BNVA) | payer BC, SELFPAY | PROVIDERS: PCP Nurse Practitioner; Visit Provider Specialist | DX: M16.11 Unilateral primary osteoarthritis, right hip (principal) | CPT/HCPCS: 73502 ==

== ENCOUNTER → 2024-12-06 12:25 | Outpatient (BNVA) | payer BC, SELFPAY | PROVIDERS: PCP Nurse Practitioner; Visit Provider Specialist | DX: M16.11 Unilateral primary osteoarthritis, right hip (principal) | CPT/HCPCS: 77002 ==

== ENCOUNTER 2024-12-30 09:42 | Outpatient (CLI) | payer BC, SELFPAY ==
--- NOTE | 2024-12-30 09:50 | MM_ITS ---
WS: [id number] BILATERAL SCREENING DIGITAL TOMOSYNTHESIS MAMMOGRAM WITH CAD HISTORY: SCREENING COMPARISON: 12/25/2023, 12/02/2022, 11/29/2021 Bilateral CC and MLO views with tomosynthesis and synthetic mammography submitted. Computer aided detection analyzed. Breast composition: There are scattered areas of fibroglandular density. No suspicious masses, microcalcifications or architectural distortion. Asymmetries in the retroareolar breasts are stable. There are a few benign calcifications. No mass or distortion. MM/MM scr BI tomosynthesis [id number] IMPRESSION: BI-RADS: 2 - Benign. FOLLOW UP: 1 Year Follow-up
== END 2024-12-30 09:43 | disposition home or self-care (01) ==
LOC: RAD 09:43
PROVIDERS: PCP Nurse Practitioner; Visit Provider Nurse Practitioner
DX: Z12.31 Encounter for screening mammogram for malignant neoplasm of breast (principal); R92.323 Mammographic fibroglandular density, bilateral breasts; M16.11 Unilateral primary osteoarthritis, right hip; M25.751 Osteophyte, right hip; L30.9 Dermatitis, unspecified
CPT/HCPCS: 73502; 77063; 77067

== ENCOUNTER 2025-01-07 15:00 | Outpatient (RCR) | payer BC, SELFPAY | END 2025-01-10 23:59 | disposition home or self-care (01) | LOC: TPT 15:00 | PROVIDERS: PCP Nurse Practitioner; Visit Provider Orthopaedic Surgery | DX: M54.50 Low back pain, unspecified (principal); G89.29 Other chronic pain | CPT/HCPCS: 97110; 97140; 97161 ==

== ENCOUNTER 2025-01-14 15:18 | Outpatient (RCR) | payer BC, SELFPAY | END 2025-02-09 23:59 | disposition home or self-care (01) | LOC: TPT 15:18 | PROVIDERS: PCP Nurse Practitioner; Visit Provider Orthopaedic Surgery | DX: M54.50 Low back pain, unspecified (principal); G89.29 Other chronic pain | CPT/HCPCS: 97110 ==

== ENCOUNTER → 2025-01-15 10:38 | Outpatient (BNVA) | payer BC, SELFPAY | PROVIDERS: PCP Nurse Practitioner; Visit Provider Nurse Practitioner | DX: L30.9 Dermatitis, unspecified (principal) | CPT/HCPCS: 86003; 86008 ==